=== PATIENT | male | born 1960 | race Caucasian/White ===

== ENCOUNTER 2017-12-30 15:28 | Emergency (ER) | payer MEDICAID ==
[~2017-12-30] VITALS: Ht 182.9 cm; Wt 107.5 kg
[2017-12-30] MEDS ORDERED: KETOROLAC TROMETH 60MG/2ML VIAL IM ONE (19:15)
[2017-12-30] MEDS ORDERED: DEXAMETHASONE SOD PHOS 10MG/1ML VIAL INJ IM ONE (19:15)
[2017-12-30 19:39] VITALS: BP 119/95
== END 2017-12-30 19:45 | disposition home or self-care (01) ==
LOC: ER 15:37
DX: G56.01 Carpal tunnel syndrome, right upper limb (principal)
CPT/HCPCS: 96372; 99284; J1100; J1885

== ENCOUNTER 2018-02-05 13:17 | Emergency (ER) | payer MEDICAID ==
[~2018-02-05] VITALS: Ht 182.9 cm; Wt 104.8 kg
[2018-02-05 18:43] VITALS: BP 121/74
[2018-02-05] MEDS ORDERED: methylPREDNISolone SOD SUCC 125 MG/2 ML VL IM ONE (19:00)
[2018-02-05] MEDS ORDERED: KETOROLAC TROMETH 60MG/2ML VIAL IM ONE (19:00)
== END 2018-02-05 20:07 | disposition home or self-care (01) ==
LOC: ER 13:17
DX: G56.01 Carpal tunnel syndrome, right upper limb (principal); M19.90 Unspecified osteoarthritis, unspecified site; E11.9 Type 2 diabetes mellitus without complications; I10 Essential (primary) hypertension; E07.9 Disorder of thyroid, unspecified
CPT/HCPCS: 96372; 99284; J1885; J2930

== ENCOUNTER 2018-05-01 12:39 | Emergency (ER) | payer MEDICAID ==
[~2018-05-01] VITALS: Ht 182.9 cm; Wt 104.3 kg
[2018-05-01 13:46] VITALS: BP 121/81
== END 2018-05-01 15:07 | disposition home or self-care (01) ==
LOC: ER 12:43
DX: S46.912A Strain of unspecified muscle, fascia and tendon at shoulder and upper arm level, left arm, initial encounter (principal); S63.501A Unspecified sprain of right wrist, initial encounter; S20.212A Contusion of left front wall of thorax, initial encounter; E11.9 Type 2 diabetes mellitus without complications; I10 Essential (primary) hypertension; E07.9 Disorder of thyroid, unspecified; Z95.1 Presence of aortocoronary bypass graft; W01.0XXA Fall on same level from slipping, tripping and stumbling without subsequent striking against object, initial encounter; Y93.01 Activity, walking, marching and hiking; Y92.481 Parking lot as the place of occurrence of the external cause; Y99.8 Other external cause status
CPT/HCPCS: 29125; 71101; 73030; 73110; 93005